=== PATIENT | male | born 1950 | race Caucasian/White ===

== ENCOUNTER 2023-07-20 14:00 | Outpatient (RCR) | payer MEDICARE, BC, SELFPAY ==
--- NOTE | 2023-07-06 15:26 | PT.OPEX ---
PT [place] Outpatient Eval PT [facility] Outpatient Eval Start: 07/06/23 12:50 Freq: Status: Active Protocol: Document 07/06/23 12:50 ELVER (Rec: 07/06/23 15:26 ELVER [id number]) E-signed By Ginna Mosley PT Physical Therapy Outpatient Evaluation Insurance Information Recert Due Date 10/03/23 Insurance Name Medicare B,Blue Cross/Blue Shield Medical Diagnosis MECHANICAL LOW BACK PAIN M54.5 Treating Diagnosis BACK PAIN M54.5 Referring MD KRISTEN HERRMANN MD Subjective Subjective PATIENT REPORTS ~ 1YEAR LONG H /O RIGHT SIDED BACK PAIN THAT DOES NOT EXTEND INTO GLUTS. HE STATES THAT I FEEL IT MOST WHEN I'M MOVING FROM LAYING DOWN TO SITTING UP AND WHEN I SIT TOO LONG. HE DENIES ANY FUNCTIONAL LOSS NOR PAIN THAT KEEPS HIM FROM PERFORMING ANY ACTIVITY BUT RATHER A NAGGING TIGHTNESS AND DISCOMFORT. PATIENT ENJOYS GOLFING AND BEING ACTIVE IN THE SUMMER MONTHS BUT TENDS TO HIBERNATE DURING THE WINTER MONTHS. HE KNOWS HE NEEDS TO MOVE MORE BUT STATES, I GET VIRAJ OF LAZY SOMETIMES I GUESS. 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 LUMBAR ROM Flexion: WFL repeated flexion: UNREMARKABLE Extension: WFL repeated ext: UNREMARKABLE Right Sidebend: WFL Left Sidebend: WFL LE MMT Hip flexion: R 5/5 L 5/5 Hip Extension: R 5/5 L 5/5 Hip abduction: R 5/5 L /55 knee extension: R 5/5 L 5/5 Knee Flexion: R 5/5 L 5/5 Dorsiflexion/heel walk: R 5/5 L 5/5 Plantarflexion/toe walk: R 5/5 L 5/5 Great Toe Extension: R 5/5 L 5 /5 JOINT MOBILITY/PALPATION: NO APPRECIABLE PAIN WITH PALPATION; MOD HYPOMOBILITY ABOUT THE LUMBAR SPINE SPECIAL TESTS Straight leg raise: (-) Crossed straight leg raise: (- ) Slump test: (-) Quadrant test: (-) SI/HIPI tests EULOGOI (-) FADIR (+) LEFT>RIGHT SCOUR (-) Gillet Test: (-) Standing forward bend Test: (- ) Gapping and Compression test: (-) TX: SUPINE TRUNK ROTATION 3 X 15 SEC SUPINE SKTC R/L 3 X 5 SEC SUPINE DKTC 3 X 10 SUPINE BRIDGE X 15 HOLD 3 SEC QUAD CAT/COW INTO CHILD'S POSE X 5 REPS (08/06/09) SHRUG W/BKWD ROTATION X 15 NEXT VISIT: STDG TB (BLUE) ROW X 15 HOLD 3 STDG TB (BLUE S'EXT X 15 HOLD 3 STDG TB (GREEN) TRUNK ROTATION X 10 R/L PRONE ALT OPP UE/LE X 10 HOLD 3 Assessment Assessment/Impression PATIENT IS A [address] HERRMANN TO EVAL AND TX MECHANICAL LBP; PMHX INCLUDES BUT NOT LIMITED HTN, COLON CA, R/L PARTIAL TKA, ALLERGIES, REMOTE H/O BACK PAIN. PATIENT DEMONSTRATES SIGNS AND SYMPTOMS INDICATING HYPOMOBILITY OF HIS LUMBAR SPINE, DECREASED CORE STRENGTH , DECREASED HIP FLEXIBILITY. PATIENT WOULD BENEFIT FROM A COMPREHENSIVE PROGRAM TO ADDRESS THESE DEFICITS WELL INSTRUCTION AND EDUCATION REGARDING POSTURE, LIFTING, AND THE AGING PROCESS IT RELATES TO NORMAL WEAR AND TEAR AND DAILY FUNCTIONAL ACTIVITIES. PATIENT IS IN AGREEMENT WITH POC AND FREQ WITH NEXT VISIT PLANS TO PROGRESS CORE/BLE STRENGTHENING. Primary Functional Limitations PROLONGED POSITIONS, BED MOBILITY, SUPINE<>SIT TRANSITIONS Plan of Care Rehabilitation Potential Good Physical Therapy Goals STG (4-6 WEEKS): 1. PATIENT WILL REPORT PAIN </ 3/10 DURING DAILY ACTIVITIES AND WITH DAILY PARTICIPATION WITH HIS HEP 2. PATIENT WILL REPORT THE ABILITY TO STAND >10 MIN TO ENABLE COOKING, GROOMING, AND OTHER IADL'S 3. PATIENT WILL VERBALIZE A GOOD UNDERSTANDING OF BODY MECHANICS DURING HIS DAILY ACTIVITIES ALONG WITH PROPER LIFTING TECHNIQUES FOR GOOD BACK CARE AND WITH SYMPTOM MGMT. LTG (8 WEEKS): 1. PATIENT WILL IMPROVE NOT ONLY FLEXIBILITY BUT BOTH CORE STRENGTH AND STABILITY TO IMPROVE POSTURING DURING DAILY ACTIVITIES INCLUDING IADL'S AND PEER CENTERED ACTIVITIES. 2. PATIENT WILL VERBALIZE GOOD UNDERSTANDING OF CORE STABILITY TO MAINTAIN AND FURTHER PROGRESS HIS FUNCTIONAL MOBILITY AND TOLERANCE TO PROLONGED POSITIONING. 3. PATIENT WILL DEMONSTRATE COMPLETE INDEPENDENCE AND THE ABILITY TO PROGRESS HIS HEP FOR MAINTENANCE AND CONTINUED IMPROVEMENT OF HIS CORE / BLE STRENGTH AND STABILITY. Coordination/Communication With Referral Source Treatment Plan/Direct Interventions Joint Mobilization,Manual Therapy,Neuromuscular Re-ed, Therapeutic Activities, Therapeutic Exercises Frequency/Duration 1W8 Patient Will Be Discharged From Therapy Completion of LTG(s), Independently Progressing Evaluation Billing Untimed Code Treatment Minutes 20 PT Eval No Charge No Complexity Moderate Certification Information Initial Certification Date 07/06/23 Ending Certification Date 10/03/23 Provider Signature Shows Agreement With POC & Medical Necessity Physician Signature & Date Requested Please Sign/Date Here Physician Comment/Change : Physician NPI Number #
== END 2023-11-17 23:59 | disposition home or self-care (01) ==
PROVIDERS: PCP Family Medicine; Visit Provider Family Medicine
DX: M54.89 Other dorsalgia (principal); Z51.89 Encounter for other specified aftercare
CPT/HCPCS: 97110; 97162

== ENCOUNTER 2025-02-21 16:59 | Emergency (ER) | payer MEDICARE, BC, SELFPAY ==
[2025-02-21 17:14] VITALS: PULSE 81; RESP 18; TEMP 37.1; O2SAT 97
--- NOTE | 2025-02-21 17:44 | ED.GENADULT ---
HPI - General Adult General Date Seen: 02/21/25 Chief complaint: Ear/Nose/Throat Problem Stated complaint: Bleeding tongue Time Seen by Provider: 02/21/25 17:19 Source: patient Mode of arrival: ambulatory Limitations: no limitations History of Present Illness HPI narrative: Patient is a 74-year-old male presenting to the emergency department for a tongue laceration. States he was eating breakfast this morning when he bit his tongue. He has not any blood thinners. Although does taking 81 mg aspirin every morning. Has not been able to get the bleeding to stop. He does occasionally developed clots on top of the tongue which then fall off. Initially went to urgent care than within to the emergency department. Denies any pain. Denies any shortness of breath or chest pain. Denies lightheadedness. No other concerns noted at this time. Related Data Home Medications ?Medication ?Instructions ?Recorded ?Confirmed aspirin 81 mg tablet,delayed 81 mg PO QDAY 02/21/25 02/21/25 release (Adult Aspirin Regimen) atenolol 50 mg tablet 50 mg PO DAILY 02/21/25 02/21/25 atorvastatin 20 mg tablet 20 mg PO DAILY 02/21/25 02/21/25 ibuprofen PO 02/21/25 02/21/25 mecobalamin (vitamin B12) PO 02/21/25 02/21/25 multivitamin 1 tab PO QAM 02/21/25 02/21/25 Allergies Allergy/AdvReac Type Severity Reaction Status Date / Time No Known Drug Allergies Allergy Verified 02/21/25 17:17 Review of Systems Narrative: Pertinent systems reviewed and were negative unless stated in HPI Exam Narrative: Exam Narrative: Const: Well-nourished, Well-developed, in mild distress Eyes: PERRL, no conjunctival injection, and symmetrical lids HENT: Atraumatic external nose and ears. Moist mucous membranes. Roughly 0.5 cm laceration noted on middle aspect of the tongue. Actively bleeding. MSK:Extremities w/o deformity, Normal Active ROM Skin: Warm, Dry. No rashes or lesions. Neuro: Normal Muscle tone, No focal neurological deficits. Psych: Awake, Alert, & Oriented x3. Appropriate mood and affect. Const: Vital Signs, click to edit/add: Vital Signs - 24 hr 02/21/25 17:14 Temperature 98.8 F Pulse Rate [Pulse Oximeter] 81 Respiratory Rate 18 Pulse Oximetry 97 Oxygen Delivery Me thod Room Air Course Vital Signs Vital signs: Initial Vital Signs Temperature 98.8 F 02/21/25 17:14 Temperature Source Temporal Artery Scan 02/21/25 17:14 Pulse Rate 81 02/21/25 17:14 Respiratory Rate 18 02/21/25 17:14 Blood Pressure Position Sitting 02/21/25 17:14 Pulse Oximetry 97 02/21/25 17:14 Oxygen Delivery Method Room Air 02/21/25 17:14 Vital Signs Temperature 98.8 F 02/21/25 17:14 Pulse Rate 81 02/21/25 17:14 Respiratory Rate 18 02/21/25 17:14 Pulse Oximetry 97 02/21/25 17:14 Oxygen Delivery Method Room Air 02/21/25 17:14 Temperature 98.8 F 02/21/25 17:14 Pulse Rate 81 02/21/25 17:14 Respiratory Rate 18 02/21/25 17:14 Pulse Oximetry 97 02/21/25 17:14 Oxygen Delivery Method Room Air 02/21/25 17:14 Medications Administered Medications: Discontinued Medications Generic Name Dose Route Start Last Admin Trade Name Freq PRN Reason Stop Dose Admin Lidocaine/Epinephrine 10 ml 02/21/25 18:19 02/21/25 18:39 Lidocaine 1%-Epi 1:100,000 Mdv INFILTRATI 02/21/25 18:20 10 ml ONCE ONE Administration Tranexamic Acid 1,000 mg 02/21/25 18:19 02/21/25 18:38 Tranexamic Acid 100 Mg/Ml Inj TOPICAL 02/21/25 18:20 1,000 mg ONCE ONE Administration Medical Decision Making [facility] Narrative Medical decision making narrative: 74-year-old male presenting to emergency department for bleeding of his tongue. Will try placing lidocaine with epi on the area to help stop the bleeding. Considering the size of the laceration will hold off on primary closure unless absolutely necessary. He all the sun for about 20 minutes and bleeding improved significantly. Watched him for about 15 minutes and he has small amount of oozing again. TXA was then placed. He help this on again for 20 minutes. Again evaluated him after another 15 minutes and bleeding has since resolved. He is doing well and is safe for discharge. Discharge Plan Discharge Clinical Impression: Laceration of tongue Qualifiers: Encounter type: initial encounter Qualified Code(s): S01.512A - Laceration without foreign body of oral cavity, initial encounter Patient Disposition: Home, Self-Care Condition: Stable Additional Instructions: Recommend only eating soft food today. Will also hold off any any crunchy foods such as chips tomorrow or the next day to make you do not cut up the area and cause bleeding again. Return for new or worsening symptoms. Prescriptions: No Action atorvastatin 20 mg tablet 20 mg PO DAILY atenolol 50 mg tablet 50 mg PO DAILY ibuprofen PO multivitamin Tablet 1 tab PO QAM aspirin [Adult Aspirin Regimen] 81 mg tablet,delayed release (DR/EC) 81 mg PO QDAY mecobalamin (vitamin B12) PO Follow Up/Referrals: Jarvis Escamilla MD [Primary Care Provider, Family Practice] Stand Alone Forms: [employer] Info Instructions
--- OUTSIDE RECORDS SUMMARY | 2025-02-21 18:02 | XMS_ITS | Encounter Summary ---
Author Organization [facility] Address [address] [place] [address] Care Team Providers Care Blood Bank Attendant Name Role Phone Elsewhere, Pcp Primary Care Provider Unavailabl e Encounter Details Date Type Department Care Team (Late st Contact Info) Description 01/07/2023 Orders Only Department of Urology in [place], [place] [address] [place] [address] [facility], ProviderMD Social History Tobacco Use Types Packs/Day Years Used Date Smoking Tobacco: Never Smokeless Tobacco: Never Alcohol Use Standard Drinks/Week Comments No 0 (1 standard drink = 0.6 oz pur e alcohol) rare Humiliation, Afraid, Rape, and Kick questionnair e Answer Date Recorded Within the last year, have y ou been afraid of your partner or ex-partner? No 03/01/2022 Within the last year, have y ou been humiliated or emotionally abused in other ways by your partner or ex-partner? No Within the last year, have y ou been kicked, hit, slapped, or otherwise physically hurt by your partner or ex-partner? No 03/01/2022 Within the last year, have y ou been raped or forced to have any kind of sexual activity by your partner or ex-partner? No 03/01/2022 Hunger Vital Sign Answer Date Recorded Within the past 12 months, y ou worried that your food would run out before you got the money to buy more. Never true 03/01/20 22 Within the past 12 months, t he food you bought just didn't last and you didn't have money to get more. Never true 03/01/2022 PRAPARE - Transportation Answer Date Re corded In the past 12 months, has l ack of transportation kept you from medical appointments or from getting medications? No 02/03 In the past 12 months, has l ack of transportation kept you from meetings, work, or from getting things needed for daily living? No 03/01/2022 Housing Stability Vital Sign Answer Shoaib e Recorded In the last 12 months, was t here a time when you were not able to pay the mortgage or rent on time? No 03/01/2022 In the last 12 months, how many places have you lived? 1 03/01/2022 In the last 12 months, was t here a time when you did not have a steady place to sleep or slept in a correction (including now)? No 03/01/2022 Education Answer Date Recorded What is the highest level of school you have completed or the highest degree you have received? Bachelor's degree (e.g., BA, AB, BS) 09/25/2018 Sex and Gender Information Value Date Recorded Sex Assigned at Male 03/01/2022 8:02 PM WILDLIFE REFUGE MANAGER Legal Sex Male 6:23 PM WILDLIFE REFUGE MANAGER Gender Identity Male 09/13/2017 9:03 AM CDT Sexual Orientation Straight 09/13/2017 9: 03 AM CDT documented as of this encounter Plan of Treatment Upcoming Encounters Date Type Department Care Team (Latest Contact Info) Description 03/12/2025 9:30 AM WILDLIFE REFUGE MANAGER Clinical Communication Virtual Review in [place], [place] [address] [place] [address] 03/13/2025 11:30 AM WILDLIFE REFUGE MANAGER Appointment Department of Radiology, [facility] in [place], [place] [address] [place] [phone] El Jhaveri M.D. [address] [place] [phone] Discharge Disposition: Home or Self Care 03/13/2025 12:10 PM WILDLIFE REFUGE MANAGER Lab Department of Laboratory Medicine and Pathology, [facility], in [place], [place] [address] [place] [phone] El Jhaveri M.D. [address] [place] [phone] 03/13/2025 12:40 PM WILDLIFE REFUGE MANAGER Lab Department of Laboratory Medicine and Pathology, [facility], in [place], [place] [address] [place] [phone] El Jhaveri M.D. [address] [place] [phone] 03/13/2025 1:30 PM WILDLIFE REFUGE MANAGER Office Visit Section of Executive [facility] in [place], [place] [address] [place] [phone] El Jhaveri M.D. [address] [place] [phone] 03/13/2025 3:30 PM WILDLIFE REFUGE MANAGER Comprehensive Visit Department of Dermatology for [facility] in [place], [place] [address] [place] [phone] El Jhaveri M.D. [address] [place] [phone] 03/14/2025 2:00 PM WILDLIFE REFUGE MANAGER Comprehensive Visit Department of Physical Medicine and Rehabilitation in [address] [phone] Kortney Gomez M.D. [address] [place] [phone] 03/14/2025 4:00 PM WILDLIFE REFUGE MANAGER Comprehensive Visit Department of Physical Medicine and Rehabilitation in [address] [phone] El Jhaveri M.D. [address] [place] [phone] Khadijah Kelley P.T. [address] [place] [phone] 03/15/2025 7:00 AM [facility] Telemedicine Section of [facility] Medicine in [place], [place] [address] [place] [phone] El Jhaveri M.D. 200 [place] [phone] documented as of this encounter Visit Diagnoses Not on filedocumented in this encounter Care Teams Blood Bank Attendant Relationship Specialty Start Date End Date Elsewhere, Pcp PCP - General 07/26/21 documented as of this encounter
--- OUTSIDE RECORDS SUMMARY | 2025-02-21 18:02 | XMS_ITS | Encounter Summary ---
Author Organization [facility] Address [address] [place] [address] Care Team Providers Care Airport Attendant Name Role Phone Elsewhere, Pcp Primary Care Provider Unavailabl e Reason for Referral * Outpatient (Routine) - Authorized Specialty Diagnoses / Procedures Referred By Contac t Referred To Contact [facility] Diagnoses General Medical Examination Adult El Jhaveri M.D. [address] [place] [address] Phone: tel: fax: [facility] Referral ID Status Reason Start Date Expiration Date V isits Requested Visits Authorized [id number] Authorized 12/28/2024 06/29/2026 1 1 * Physical Therapy (Routine) - Authorized Specialty Diagnoses / Procedures Referred By Contac t Referred To Contact Diagnoses Pain Shoulder Right Procedures PT Evaluate and treat El Jhaveri M.D. [address] [place] [address] Phone: tel: fax: [facility] Referral ID Status Reason Start Date Expiration Date V isits Requested Visits Authorized [id number] Authorized 12/28/2024 03/30/2026 99 99 * Outpatient (Routine) - Authorized Specialty Diagnoses / Procedures Referred By Contac t Referred To Contact Diagnoses Pain Shoulder Right Procedures DX Shoulder Right 2+ Views El Jhaveri M.D. [address] [place] [address] Phone: tel: fax: [facility] Referral ID Status Reason Start Date Expiration Date V isits Requested Visits Authorized [id number] Authorized 12/28/2024 03/30/2026 1 1 * Outpatient (Routine) - Authorized Specialty Diagnoses / Procedures Referred By Contact Referred To Contact Physical Medicine and Rehabilitation Diagnoses Pain Shoulder Right El Jhaveri M.D. [address] [place] [address] Phone: tel: fax: [facility] Referral ID Status Reason Start Date Expiration Date V isits Requested Visits Authorized [id number] Authorized 12/28/2024 06/29/2026 1 1 * Outpatient (Routine) - Authorized Specialty Diagnoses / Procedures Referred By Contac t Referred To Contact Dermatology Diagnoses Nevi Multiple Keratosis [facility]inic El Jhaveri M.D. [address] [place] [address] Phone: tel: fax: [facility] Referral ID Status Reason Start Date Expiration Date V isits Requested Visits Authorized [id number] Authorized 12/28/2024 06/29/2026 1 1 Reason for Visit * Reason Onset Date Comments 03/13/2025 ARF 12/24/2024 Encounter Details Date Type Department Care Team (Latest Contact Info) Description 12/24/2024 Clinical Communication Section of [facility] Medicine in [place], [place] [address] [place] [address] [place] [address] 03/13/2025 ARF Social History Tobacco Use Types Packs/Day Years Used Date Smoking Tobacco: Never Passive Smoke Exposure: Never Smokeless Tobacco: Never Alcohol Use Standard Drinks/Week Comments Not Currently 0 (1 standard drink = 0.6 oz pure alcohol) Only occasional wine or cocktail. Very sparingly. [facility] Utilities Answer Date Recorded In the past 12 months has [facility] [employer], oil, or water [employer] threatened to shut off services in your home? No 09/04/2024 Humiliation, Afraid, Rape, and Kick questionnair e Answer Date Recorded Within the last year, have y ou been afraid of your partner or ex-partner? No 09/04/2024 Within the last year, have y ou been humiliated or emotionally abused in other ways by your partner or ex-partner? No Within the last year, have y ou been kicked, hit, slapped, or otherwise physically hurt by your partner or ex-partner? No 09/04/2024 Within the last year, have y ou been raped or forced to have any kind of sexual activity by your partner or ex-partner? No 09/04/2024 Hunger Vital Sign Answer Date Recorded Within the past 12 months, y ou worried that your food would run out before you got the money to buy more. Never true 09/05/19 25 Within the past 12 months, t he food you bought just didn't last and you didn't have money to get more. Never true 09/04/2024 PRAPARE - Transportation Answer Date Re corded In the past 12 months, has l ack of transportation kept you from medical appointments or from getting medications? No 06/2024 In the past 12 months, has l ack of transportation kept you from meetings, work, or from getting things needed for daily living? No 09/04/2024 Housing Stability Answer Date Recorded What is your living situation today? I have a [facility] place to live 09/04/2024 Education Answer Date Recorded What is the highest level of school you have completed or the highest degree you have received? Bachelor's degree (e.g., BA, AB, BS) 09/25/2018 Sex and Gender Information Value Date Recorded Sex Assigned at Male 03/01/2022 8:02 PM [employer] AIR CONDITIONING MECHANIC Legal Sex Male 6:23 PM [employer] Gender Identity Male 09/13/2017 9:03 AM CDT Sexual Orientation Straight 09/13/2017 9: 03 AM CDT documented as of this encounter Miscellaneous Notes * Telephone Encounter - Gary Romano - 12/24/2024 2:55 PM CDT [facility] ARF Responses Name: Guille Garcia [facility] Number: [id number] Birthdate: 1950 Email: [email or web address] Date Completed: 12/23/2024 6:52 PM Patient's Personal Details Height in feet and inches: 5 feet 10 inches Weight in pounds: 205 pounds pounds Specific Medical Concerns Do you have any specific medical concerns to be addressed during your visit?: No Personal History Do you have a personal or family history of coronary artery disease?: Yes Are you taking prescription medication to control cholesterol?: Yes Do you currently smoke tobacco products, or have you smoked tobacco products in the past?: No Are you diabetic?: No Are you currently taking any GLP1 medications (Ozempic, Rybelsus, Wegovy, Trulicity, Victoza, Saxenda, Byetta, Bydureon BCise, Monjaro, ect)?: No Vaccinations Would you like a nurse to review your vaccination status before your appointment with [facility]?: Yes Essential Questions for Your Care Profile Colon Cancer Screening Where was your last colon cancer screening performed (e.g. Colonoscopy, Cologuard, Virtual Colonoscopy, etc.)?: I had my last colon cancer screening at [facility] If due, would you like this performed at [facility]?: Yes Have you had any difficulty with sedation?: No I have a history of colon polyps: Yes I have a history of colon cancer: Yes I have a family history (parent, sibling or child) of colon polyps before age 60: No I have a family history (parent, sibling, or child) colon cancer: No Polyp Type: Cancer Blood Medications Do you currently take any medications that alter blood clotting (i.e. blood thinners, antiplatelet medications, or aspirin)?: Yes Please check all blood medications that apply.: Aspirin Other Medical Factors Do you have any implantable devices?: No Are you currently receiving dialysis, have you ever received a kidney transplant, or have you ever been told that you have trouble with your kidneys?: No Have you ever had an allergic reaction to contrast dye?: No [facility] Patients Aged 60-69 Sleep Medicine Do you have concerns with a sleep condition that you would like to be evaluated for at [facility] such as chronic insomnia, sleep apnea, snoring, restless leg syndrome, narcolepsy, or unusual sleep behaviors?: No Osteoporosis Screening Have you experienced a fracture that occurred with lifting or after a fall from standing height or less?: No Musculoskeletal Advanced Procedure Clinic Are you interested in an advanced procedure consultation?: No Clinic for Osteoarthritis Management and Prevention Are you without a current joint problem but want your risk for developing arthritis assessed and receive recommendations for risk reduction?: No Do you have arthritis of the shoulder, hip, or knee and want to be evaluated by an expert for this problem?: Yes If yes: Shoulder-Right Joint Pain Do you have a specific joint pain issue you would like addressed during your [facility] exam?: Yes Please select the joint(s) with pain. Recommend for scheduling purposes to limit to top three jointconcerns that you would like to have evaluated by a specialist.: Shoulder - Right Have you had any previous evaluations or diagnoses?: Yes Please provide facility name and state where the evaluation was performed: [facility] How long have you had pain?: 4 months Is your pain from a previous injury?: No Have you had any previous injections?: No Would you be interested in a surgical evaluation for your joint pain at [facility]?: No Most-Requested Optional [facility] Travel Medicine Consultation including vaccinations and travel-based medical advice: No Would you like to have an appointment with a [facility] Cutter Barrel Drum?: Yes Do you have a specific skin condition you would like to have addressed at [place]?: No Eye exam: No Do you need a Federal Aviation Administration (FAA) automatic pilot mechanic medical evaluation?: No Do you need a commercial intelligence manager medical evaluation (FMC SA/DOT)?: No [facility] and [facility] Stress Management and Resiliency Training Therapy Session: No Exercise and Movement Appointment: No Coaching session with a nationally certified [facility] Furnace Setter: No Are you interested in nutrition or meal planning while at [facility]?: No Multi-Cancer Early Detection Test Do you want this multi-cancer early detection testing as part of your [facility] appointment?: No Sports Medicine Performance and Nutrition Programs Genetic Counseling Consult: [employer] Do you want this genetic counseling consult as part of your [facility] Appointment?: No Pharmacogenomics Test Do you want this pharmacogenomics testing as part of your [facility] appointment?: No [facility] Accept Terms Listed Above: Yes Local Primary Care Physician Name: Dr. Andi Powell Billing and Authorization Information Accept the terms listed above: Yes documented in this encounter Plan of Treatment Upcoming Encounters Date Type Department Care Team (Latest Contact Info) Description 03/12/2025 9:30 AM [employer] AIR CONDITIONING MECHANIC Clinical Communication Virtual Review in [place], [place] [address] [place] [address] 03/13/2025 11:30 AM [employer]O AIR CONDITIONING MECHANIC Appointment Department of Radiology, [facility] in [place], [place] [address] [place] [phone] El Jhaveri M.D. [address] [place] [phone] Discharge Disposition: Home or Self Care 03/13/2025 12:10 PM AUTO AIR CONDITIONING MECHANIC Lab Department of Laboratory Medicine and Pathology, [place], [place] [address] [place] [phone] El Jhaveri M.D. [address] [place] [phone] 03/13/2025 12:40 PM AUTO AIR CONDITIONING MECHANIC Lab Department of Laboratory Medicine and Pathology, [facility], in [place], [place] [address] [place] [phone] El Jhaveri M.D. [address] [place] [phone] 03/13/2025 1:30 PM [employer] AIR CONDITIONING MECHANIC Office Visit Section of [facility] in [place], [place] [address] [place] [phone] El Jhaveri M.D. [address] [place] [phone] 03/13/2025 3:30 PM [employer] AIR CONDITION[employer] MECHANIC Comprehensive Visit Department of Dermatology for [facility] in [place], [place] [address] [place] [phone] El Jhaveri M.D. [address] [place] [phone] 03/14/2025 2:00 PM [employer] AIR CONDITIONING MECHANIC Comprehensive Visit Department of Physical Medicine and Rehabilitation in [place], [place] [address] [place] [phone] Kortney Gomez M.D. [address] [place] [phone] 03/14/2025 4:00 PM [employer] AIR CONDITIONING MECHANIC Comprehensive Visit Department of Physical Medicine and Rehabilitation in [place], [place] [address] [place] [phone] El Jhaveri M.D. [address] [place] [phone] Khadijah Kelley I., P.TGénesis [address] [place] [phone] 03/15/2025 7:00 AM AUTO AIR CONDITIONING MECHANIC Telemedicine Section of [facility] Medicine in [place], [place] [address] [place] [phone] El Jhaveri M.D. [address] [place] [phone] Scheduled Orders Name Type Priority Associated Diagnoses Orde r Schedule PSA (Prostate-Specific Antigen), Diagnostic Lab Routine Screening Examination Prostate Cancer Expected: 03/13/2025, Expires: 03/28/2026 Vitamin B12 Assay Lab Routine Multisystem Laboratory Testing Adult Expected: 03/13/2025, Expires: 03/28/2026 25-Hydroxyvitamin D2 and D3 Lab Routine Multisystem Laboratory Testing Adult Expected: 03/13/2025, Expires: 03/28/2026 DX Shoulder Right 2+ Views Imaging RAD - Routine (most inpatients and all outpatients) Pain Shoulder Right Expected: 03/13/2025, Expires: 03/28/2026 CBC with Differential, Blood Lab Routine Multisystem Laboratory Testing Adult Expected: 03/13/2025, Expires: 03/28/2026 Comprehensive Metabolic Panel Lab Routine Multisystem Laboratory Testing Adult Expected: 03/13/2025, Expires: 03/28/2026 Hemoglobin A1c Lab Routine Multisystem Laboratory Testing Adult Expected: 03/13/2025, Expires: 03/28/2026 Lipid Panel Lab Routine Multisystem Laboratory Testing Adult Cardiac Vascular Disease Screening Expected: 03/13/2025, Expires: 03/28/2026 Thyroid Function [place] [facility] Routine Multisystem Laboratory Testing Adult Screening Examination For Thyroid Disorder Expected: 03/13/2025, Expires: 03/28/2026 Urinalysis, with Microscopic: Urine, Midstream Lab Routine Multisystem Laboratory Testing Adult Expected: 03/13/2025, Expires: 03/28/2026 Scheduled Referrals Name Type Priority Associated Diagnoses Order Schedule Dermatology - Skin check consult (clinic) Outpatient Referral Routine Nevi Multiple Keratosis Actinic Expected: 03/13/2025, Expires: 03/28/2026 Physical Medicine and Rehabilitation - General consult (clinic) Outpatient Referral Routine Pain Shoulder Right Expected: 03/13/2025, Expires: 03/28/2026 [facility] office visit (clinic) Outpatient Referral Routine General Medical Examination Adult Expected: 03/13/2025, Expires: 03/28/2026 documented as of this encounter Visit Diagnoses Diagnosis Multisystem Laboratory Testing Adult- Primary Nevi Multiple Keratosis [facility]inic Screening Examination Prostate Cancer Pain Shoulder Right General Medical Examination Adult Cardiac Vascular Disease Screening Screening Examination For Thyroid Disorder Hypertension Essential Primary- Primary Hyperlipidemia On Treatment 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
--- OUTSIDE RECORDS SUMMARY | 2025-02-21 18:02 | XMS_ITS | Clinical Summary ---
Author Organization [facility] Address [address] [place] [address] Care Team Providers Care Game Producer Name Role Phone Elsewhere, Pcp Primary Care Provider Unavailabl e Source Comments Patient records contain information from all sites at [facility]. For routine questions regarding patient records, call [phone] during business hours, M-F 8:00 AM - 5:00 PM Central Time. Record requests for emergency care only can be directed to [phone] at any time.[facility] Allergies Active Allergy Reactions Criticality Noted Date Comments House Dust Mite Other (see comments) 08/05/2016 Nasal congestion Medications aspirin [address] tablet Take 81 mg by mouth every morning. 6 Active folic acid/multivit-mi n/lutein (CENTRUM SILVER ORAL) Take 1 tablet by mouth every morning. 5 Active vitamin A & D (AMERIDERM) ointment Apply 1 Application topically every morning. Active loratadine (CLARITIN ORAL) Take 10 mg by mouth every evening. Active ibuprofen (ADVIL,MOTRIN) 200 mg tablet Take 400 mg by mouth every 6 (six) hours as needed for pain. Active amoxicillin (AMOXIL) 500 mg capsule Take 2,000 mg by mouth once as needed (1 hour prior to dental appointments). 0 Active atorvastatin (Lipitor) 20 mg tablet Take 1 tablet (20 mg total) by mouth daily. 90 tablet 3 4 03/22/20 25 Active folic acid 1 mg tablet Take 1 mg by mouth daily. Active lidocaine-priloc gera (Emla) 2.5-2.5 % creamIndications :Benign Prostatic Hyperplasia Hypertrophy With Obstruction Apply 1 Application topically 4 (four) times a day as needed for pain. Apply to tip of penis around catheter. 30 g 5 Active Additional Information Patient not taking.Reported on 12/05/2024 acetaminophen (TylenoL) 500 mg tablet Take 2 tablets (1,000 mg total) by mouth every 6 (six) hours as needed for pain. 5 Active sennosides-docus ate sodium (Senokot-S) 8.6-50 mg per tablet Take 1 tablet by mouth 2 (two) times a day as needed for constipation. 5 Active Additional Information Patient not taking.Reported on 12/05/2024 atenoloL (Tenormin) 50 mg tablet TAKE 1 TABLET(50 MG) BY MOUTH DAILY 90 tablet 5 Active Hospital, Clinic, or Other Facility Administered Medication Ordered Dose Route Frequency Start Date End Date Status lidocaine (PF) 10 mg/mL (1 %) injection 20 mL (XYLOCAINE) 20 mL inj Once 04/18/2019 Active Active Problems Patient Care Coordination No te Formatting of this note is d ifferent from the original. [facility] Colon Cancer Screening Last colon screen: Colonoscopy Year: 2023. First Degree Relative with Cancer: Yes - Age at diagnosis: unknown . Prep: Regular Complex Suite: No Results: Positive Polyps Hyperplastic Next Colon screen: 2026; Hx Colon Ca > 5 years; now on a 3 year cycle. Prostate Cancer Screening Next PSA: Diagnostic Lab Results Component Value Date PSA 3.1 03/03/2022 PSA 3.2 01/12/2021 PSA 3.8 02/07/2020 AAA (male) AAA screening: Negative in 2018 Bone Mineral Density Last BMD: Date: 2021 - Impression: Osteopenia - FRAX Score: Major Osteoporotic: 12.7 Hip Fracture: 5.0 Next BMD: 2025 HIV Negative in 2020 HCV Negative in 2016 HBV Negative in 2023 Cardiology: Last EC Next EC Lipoprotein (a): 45 in 2020 Coronary Calcium Scoring: Score of 356 in 2021 Audiology Completed in 2021 Next due date: unknown Problem Noted Date Diagnosed Date Enlarged Prostate With Lower Urinary Tract Sympt oms 02/15/2025 Keratosis Actinic 02/17/2022 Benign Prostatic Hyperplasia Hypertrophy With Ob struction 10/23/2019 Hypertension Essential Primary 10/23/2019 Stone Bladder 10/17/2019 Overview (10/17/2019): Added automatically from request for surgery [id number] Hyperlipidemia On Treatment 11/12/2014 Malignant Neoplasm Of Colon Hepatic Flexure 10/2013 Sudden Family History 01/30/2013 Resolved Problems Problem Noted Date Diagnosed Date Resolved Date Personal History Of Malignan t Neoplasm Of Prostate 04/06/2016 10/23/2019 Aftercare Total Knee Arthroplasty 01/21/2015 10/23/2019 Hemicolectomy Right Status Post 11/12/2014 10/23/2019 Cancer Colon Primary Personal History 08/20/2014 10/23/2019 Primary Osteoarthritis Knee 02/21/2012 10/23/2019 Gastroesophageal Reflux Disease NOS 02/21/2012 10/23/2019 Dysfunction Erectile 02/21/2012 020 Elevated Prostate-Specific Antigen 06/05/2008 10/23/2019 Unilateral Inguinal Hernia W ithout Obstruction Or Gangrene Not Specified As Recurrent 05/07/2008 10/23/2019 Overview (01/26/2018): Overview: Assymptomatic left ing hernia Anxiety Generalized Disorder 11/21/2006 10/23/2019 Encounters Date Type Department Care Team Description 01/16/2025 Clinical Communication [facility] of [facility] in [place], [place] [address] [place] [address] El Jhaveri M.D. 12/24/2024 Clinical Communication [facility] in [place], [place] [address] [place] [phone] El Jhaveri M.D. 03/13/2025 ARF 12/15/[address] [facility] Medicine in [place], [place] [address] [place] [phone] Dale Zelaya M.D. Med Refill 12/06/2024 2:30 PM CDT Office Visit Department of Urology in [place], [place] [address] [place] [address] Katy Gutierrez APRN, C.N.P., D.N.P. Benign Prostatic Hyperplasia Hypertrophy With Obstruction (Primary Dx) 12/06/2024 11:15 AM CDT Procedure visit Department of Urology in [place], [place] [address] [place] [phone] Adal Doshi M.D., Ph.D. Anastasiya Herron R.N. Benign Prostatic Hyperplasia Hypertrophy With Obstruction 12/05/2024 12:00 PM CDT Clinical Communication Virtual Review in [place], [place] [address] [place] [address] Pre-visit Intake from Last 3 Months Immunizations Immunization Administration Dates Next Due HZV (ZOSTAVAX) 02/06/2014 Influenza Split 01/13/2016,12/17/2013,01/16/2010 Influenza TIV (IM) 03/09/2024,02/25/2017 Influenza high dose QV(65 ye ars or older) (PF) 02/23/2021,02/08/2020 Influenza, Quadrivalent, Adj uvanted, Preservative Free 12/23/2022 Influenza, Seasonal, Injectable 03/12/2003 PCV13 02/19/2014 PPSV23 01/12/2021,05/19/2015 RZV (SHINGRIX) 04/28/2020,02/08/2020 SARS-COV-2 (COVID-19) - MODE RNA (12 YEARS AND OLDER) Fall Seasonal 02/07/2023 SARS-COV-2 (COVID-19) - MODE RNA BIVALENT(Discontinued) 02/18/2022 SARS-COV-2 (COVID-19) - PFIZ ER (Discontinued)(12 years or older) 06/28/2020,06/07/2020 SARS-COV-2 (COVID-19) - PFIZ ER BIVALENT TS(Discontinued)(12 YEARS OR OLDER) 12/16/2021 SARS-COV-2 (COVID-19) - PFIZ ER TS(Discontinued)(12 years or older) 07/09/2021 Td, (Adult) Unspecified 04/21/1998 Tdap 01/12/2021,08/18/2010,03/16/2007 Zoster, Unspecified 12/16/2011(Deferred: Other) influenza trivalent high dose (HD)(PF) 2 influenza vaccine quad (FLUZ ONE/FLUARIX) (6 months and older)(PF) 05/19/2015,01/12/2013 Family History Medical History Relation Name Comments Coronary artery disease Father tamara saunders Heart disease Father tamara saunders Relation Name Status Comments Father tamara saunders Social History Tobacco Use Types Packs/Day Years Used Date Smoking Tobacco: Never Passive Smoke Exposure: Never Smokeless Tobacco: Never Tobacco Cessation:Counseling Given: Not Answered Alcohol Use Standard Drinks/Week Comments Not Currently 0 (1 standard drink = 0.6 oz pure alcohol) Only occasional wine or cocktail. Very sparingly. [facility] Soocialities Answer Date Recorded In the past 12 months has e [employer], oil, or water [employer] threatened to shut off services in your [...] your living situation today? I have a [facility] place to live 09/04/2024 Education Answer Date Recorded What is the highest level of school you have completed or the highest degree you have received? Bachelor's degree (e.g., BA, AB, BS) 09/25/2018 Sex and Gender Information Value Date Recorded Sex Assigned at Male 03/01/2022 8:02 PM COMMERCIAL DRIVER'S LICENSE DRIVER Legal Sex Male 6:23 PM COMMERCIAL DRIVER'S LICENSE DRIVER Gender Identity Male 09/13/2017 9:03 AM CDT Sexual Orientation Straight 09/13/2017 9: 03 AM CDT Last Filed Vital Signs Vital Sign Reading Time Taken Comments Blood Pressure 135/84 09/05/2024 10:40 AM CDT Pulse 115 09/05/2024 10:18 PM CDT Temperature 37 C (98.6 F) 09/05/2024 10:18 PM CDT Respiratory Rate 22 09/05/2024 10:18 PM CDT Oxygen Saturation 95% 09/05/2024 10:18 PM CDT Inhaled Oxygen Concentration - - Weight 97 kg (213 lb 15.3 oz) 09/04/2024 7:26 AM CDT Height 178.4 cm (5' 10.24) 09/04/2024 7:26 AM C DT Body Mass Index 30.49 09/04/2024 7:26 AM CDT Plan of Treatment Upcoming Encounters Date Type Department Care Team (Latest Contact Info) Description 03/12/2025 9:30 AM COMMERCIAL DRIVER'S LICENSE DRIVER Clinical Communication Virtual Review in [place], [place] [address] [place] [phone] 03/13/2025 11:30 AM COMMERCIAL DRIVER'S LICENSE DRIVER Appointment Department of Radiology, [facility] in [place], [place] [address] [place] [phone] El Jhaveri M.D. [address] [place] [phone] Discharge Disposition: Home or Self Care 03/13/2025 12:10 PM COMMERCIAL DRIVER'S LICENSE DRIVER Lab Department of Laboratory Medicine and Pathology, [facility], in [place], [place] [address] [place] [address] El Jhaveri M.D. [address] [place] [phone] 03/13/2025 12:40 PM COMMERCIAL DRIVER'S LICENSE DRIVER Lab Department of Laboratory Medicine and Pathology, [facility], in [place], [place] [address] [place] [phone] El Jhaveri M.D. [address] [place] [phone] 03/13/2025 1:30 PM COMMERCIAL DRIVER'S LICENSE DRIVER Office Visit Section of [facility] in [place], [place] [address] [place] [phone] El Jhaveri M.D. [address] [place] [phone] 03/13/2025 3:30 PM COMMERCIAL DRIVER'S LICENSE DRIVER Comprehensive Visit Department of Dermatology for [facility] in [place], [place] [address] [place] [phone] El Jhaveri M.D. [address] [place] [phone] 03/14/2025 2:00 PM COMMERCIAL DRIVER'S LICENSE DRIVER Comprehensive Visit Department of Physical Medicine and Rehabilitation in [address] [phone] Kortney Gomez M.D. [address] [place] [phone] 03/14/2025 4:00 PM COMMERCIAL DRIVER'S LICENSE DRIVER Comprehensive Visit Department of Physical Medicine and Rehabilitation in [address] [phone] El Jhaveri M.D. [address] [place] [phone] Khadijah Kelley I. PGénesisTGénesis [address] [place] [phone] 03/15/2025 7:00 AM COMMERCIAL DRIVER'S LICENSE DRIVER Telemedicine Section of [facility] in [place], [place] [address] [place] [address] El Jhaveri M.D. [address] [place] [address] Health Maintenance Due Date Last Done Comments Office Visit for Blood Pressure Check / Re-check 1950 Depression Screening (Annual PHQ-2) 04/04/2024 COVID-19 Vaccine ( season) 2024 03/09/2024, 07/04/2023, 02/07/2023, Additional history exists Influenza Vaccine (#1) 2024 , 12/23/2022, 02/17/2022, Additional history exists Fasting Glucose for Diabetes Screening 03/19/2027 03/19/2024, 03/19/2024, 03/29/2023, Additional history exists Lipid (Cholesterol) Screening 03/19/2029 03/19/2024, 03/29/2023, 03/03/2022, Additional history exists DTaP,Tdap,and Td Vaccines (4 - Td or Tdap) 01/12/2031 01/12/2021, 08/18/2010, 03/16/2007, Additional history exists Zoster Vaccines Completed 04/28/2020, 09/2019, 02/06/2014 Pneumococcal vaccine (50+ years) Completed 01/12/2021, 05/19/2015, 02/19/2014 Fall Risk Screen (Annual) Completed 09/04/2024 IPV Vaccines Aged Out No longer eligi ble based on patient's age to complete this topic Medical Devices Implanted Type Area Relations Director Device Identifier Shelf Expiration Date Model / Serial / Lot Zim Uni Insert 8 Sz 4 - Sanchez [id number] Implanted:Qty: 1 on 01/14/2015 Knee Implant Other/Legacy - See Implant Description [employer] Description:Device Manufactu rer - Alvin. Body Location - Other. Left. Device Status Text - [id number] [id number]. Zim Uni Fem Reg Lt Mdl Rt Lat - Sanchez [id number] Implanted:Qty: 1 on 01/14/2015 Knee Implant Bilateral: Other/Legacy - See Implant Description [employer] Description:Device Manufactu rer - Alvin. Body Location - Other. Left. Device Status Text - KNEE [id number]. Zim Uni Tib Plate Hydrogen Treater Lrt Sz 4 - Sanchez [id number] Implanted:Qty: 1 on 01/14/2015 Knee Implant Other/Legacy - See Implant Description [employer] Description:Device Manufactu rer - Alvin. Body Location - Other. Left. Device Status Text - KNEE [id number]. Zim Uni Fem Reg Plus Rt Mdl Lt Lat - Sanchez [id number] Implanted:Qty: 1 on 07/22/2015 Knee Implant Other/Legacy - See Implant Description [employer] Description:Device Manufactu rer - Alvin. Body Location - Other. Right. Device Status Text - [id number] [id number]. Zim Uni Insert 8 Sz 4 - Sanchez [id number] Implanted:Qty: 1 on 07/22/2015 Knee Implant Other/Legacy - See Implant Description [employer] Description:Device Manufactu rer - Alvin. Body Location - Other. Right. Device Status Text - KNEE [id number]. Zim Uni Tib Plate Mrt Llt Sz 4 - Sanchez [id number] Implanted:Qty: 1 on 07/22/2015 Knee Implant Other/Legacy - See Implant Description [employer] Description:Device Manufactu rer - Alvin. Body Location - Other. Right. Device Status Text - KNEE [id number]. Cement Bone Small - Sanchez [id number] Implanted:Qty: 1 on 01/14/2015 Mis Other Kym Description:Device Manufactu rer - Kym Joselin.. Device Status Text - [id number]-2841. Cement Bone Small - Sanchez [id number] Implanted:Qty: 1 on 07/22/2015 Mis Other Kym Description:Device Manufactu rer - [place] Joselin.. Device Status Text - [id number]-2841. Ocular Lens Ocular Lens Bilateral: Eye Stent Inlay 7fr X 26cm - Sanchez [id number] Implanted:Qty: 1 on 10/28/2011 Ureteral Stent C.[employer].Bard Description:Device Manufactu rer - Bard Patient Care Division. Device Status Text - [id number]. Procedures Procedure Name Priority Date/Time Associated Diagnosis Comments URO UROFLOW Routine 12/06/2024 11:15 AM CDT Benign Prostatic Hyperplasia Hypertrophy With Obstruction HEMOGLOBIN A1C, B Routine 03/19/2024 11: 11 AM COMMERCIAL DRIVER'S LICENSE DRIVER [facility] Testing Adult LIPID PANEL, S Routine 03/19/2024 11:11 AM COMMERCIAL DRIVER'S LICENSE DRIVER [facility] Laboratory Testing Adult from Last 3 Months or Most Recently Relevant to Health Maintenance Results * URO Uroflow (12/06/2024 11:15 AM CDT) Narrative Juan F Varela M.D. - 12/06/2024 11:15 AM CDT Juan F Varela M.D. 12/06/2024 3:36 PM Reason for visit: UROFLOW The patient is here for a complex uroflow via calibrated electronic equipment and residual urine checked by ultrasound. Indications: BPH with lower urinary tract symptoms Peak flow: 6.3 ml/sec Average flow: 3.6 ml/sec Voiding time: 15.5 sec Total voided volume: 56 mls Continuous (smooth) flow pattern Residual urine: 0 ml by ultrasound Impression: Low voided volume with low postvoid residual. us Adal Doshi M.D., Ph.D. UROLOGY ORDERABLES Final Result * (ABNORMAL) Lipid Panel (03/19/2024 11:11 AM COMMERCIAL DRIVER'S LICENSE DRIVER) Triglycerides 191(H) mg/dL 03/19/2024 1:14 PM COMMERCIAL DRIVER'S LICENSE DRIVER DTL Comment: ----REFERENCE VALUE---- Normal: <150 mg/dL Borderline High: 150-199 mg/dL High: 200-499 mg/dL Very High: > or =500 mg/dL Cholesterol, Total 156 mg/dL 2023 1:14 PM COMMERCIAL DRIVER'S LICENSE DRIVER DTL Comment: ----REFERENCE VALUE---- Desirable: < 200 mg/dL Borderline High: 200 - 239 mg/dL High: > or = 240 mg/dL Cholesterol, LDL, Calculated 77 mg/dL 03/19/2024 1:14 PM COMMERCIAL DRIVER'S LICENSE DRIVER DTL Comment: ----REFERENCE VALUE---- Desirable: <100 mg/dL Above Desirable: 100-129 mg/dL Borderline High: 130-159 mg/dL High: 160-189 mg/dL Very High: >=190 mg/dL ----ADDITIONAL INFORMATION---- LDL cholesterol calculated using the Ramirez/NIH equation. Cholesterol, HDL, S 47 >=40 mg/dL 03/19/2024 1:14 PM COMMERCIAL DRIVER'S LICENSE DRIVER DTL Cholesterol, Non-HDL, Calculated 109 mg/dL 03/19/2024 1:14 PM COMMERCIAL DRIVER'S LICENSE DRIVER DTL Comment: ----REFERENCE VALUE---- Desirable: <130 mg/dL Above Desirable: 130-159 mg/dL Borderline High: 160-189 mg/dL High: 190-219 mg/dL Very High: > or =220 mg/dL Fasting (8 HR or more) Yes 03/19/2024 11:11 AM COMMERCIAL DRIVER'S LICENSE DRIVER DTL Blood (Blood, Venous) 03/19/2024 11:11 AM COMMERCIAL DRIVER'S LICENSE DRIVER 03/19/2024 12:12 PM COMMERCIAL DRIVER'S LICENSE DRIVER us El Jhaveri M.D. LAB BLOOD ADD-ON Final Re sult Performing Organization Address [facility] Co de Phone Number [facility] [address] [place], [place] [phone] [place] [address] [facility] [address] [place] [address] * Hemoglobin A1c (03/19/2024 11:11 AM COMMERCIAL DRIVER'S LICENSE DRIVER) Hemoglobin A1c, B 5.1 4.0 - 5.6 % 03/19/2024 12:59 PM COMMERCIAL DRIVER'S LICENSE DRIVER DTL Blood (Blood, Venous) 03/19/2024 11:11 AM COMMERCIAL DRIVER'S LICENSE DRIVER 03/19/2024 11:59 AM COMMERCIAL DRIVER'S LICENSE DRIVER us El Jhaveri M.D. LAB BLOOD ADD-ON Final Re sult Performing Organization Address City/[facility]/ZIP Co de Phone Number [facility] [address] [place] [address], [facility] DTL [facility] [address] [place] [address] from Last 3 Months or Most Recently Relevant to Health Maintenance Insurance [facility] MEDICARE Advance Directives For more information, please contact: [phone] * Full Code (Latest Code Status on File) Date Activated Date Inactivated Comments 09/04/2024 11:55 AM 09/05/2024 1:35 PM Question Answer Comments Full Code: Discussed Care Teams Game Producer Relationship Specialty Start Date End Date Elsewhere, Pcp PCP - General 07/26/21
--- OUTSIDE RECORDS SUMMARY | 2025-02-21 18:02 | XMS_ITS | Encounter Summary ---
Author Organization [facility] Address [address] [place] [address] Care Team Providers Care Bonding Equipment Operator Name Role Phone Elsewhere, Pcp Primary Care Provider Unavailabl e Encounter Details Date Type Department Care Team (Late st Contact Info) Description 01/16/2025 Clinical Communication Section of [facility] Medicine in [place], [place] [address] [place] [phone] El Jhaveri M.D. [address] [place] [address] Social History Tobacco Use Types Packs/Day Years Used Date Smoking Tobacco: Never Passive Smoke Exposure: Never Smokeless Tobacco: Never Alcohol Use Standard Drinks/Week Comments Not Currently 0 (1 standard drink = 0.6 oz pure alcohol) Only occasional wine or cocktail. Very sparingly. [facility] Utilities Answer Date Recorded In the past [address] [facility] [employer] gas, oil, or water [employer] threatened to shut off services in your [...] your living situation today? I have a [facility] place to live 09/04/2024 Education Answer Date Recorded What is the highest level of school you have completed or the highest degree you have received? Bachelor's degree (e.g., BA, AB, BS) 09/25/2018 Sex and Gender Information Value Date Recorded Sex Assigned at Male 03/01/2022 8:02 PM BISCUITWARE BRUSHER Legal Sex Male 6:23 PM BISCUITWARE BRUSHER Gender Identity Male 09/13/2017 9:03 AM CDT Sexual Orientation Straight 09/13/2017 9: 03 AM CDT documented as of this encounter Plan of Treatment Upcoming Encounters Date Type Department Care Team (Latest Contact Info) Description 03/12/2025 9:30 AM BISCUITWARE BRUSHER Clinical Communication Virtual Review in [place], [place] 200 [place] [address] 03/13/2025 11:30 AM BISCUITWARE BRUSHER Appointment Department of Radiology, [facility], in [place], [place] [address] [place] [phone] El Jhaveri M.D. [address] [place] [phone] Discharge Disposition: Home or Self Care 03/13/2025 12:10 PM BISCUITWARE BRUSHER Lab Department of Laboratory Medicine and Pathology, [facility], in [place], [place] [address] [place] [address] [place] [phone] El Jhaveri M.D. [address] [place] [phone] 03/13/2025 12:40 PM BISCUITWARE BRUSHER Lab Department of Laboratory Medicine and Pathology, [facility], in [place], [place] [address] [place] [address] El Jhaveri M.D. [address] [place] [phone] 03/13/2025 1:30 PM BISCUITWARE BRUSHER Office Visit Section of [facility] in [place], [place] [address] [place] [address] El Jhaveri M.D. [address] [place] [phone] 03/13/2025 3:30 PM BISCUITWARE BRUSHER Comprehensive Visit Department of Dermatology for [facility] in [place], [place] [address] [place] [address] El Jhaveri M.D. [address] [place] [phone] 03/14/2025 2:00 PM BISCUITWARE BRUSHER Comprehensive Visit Department of Physical Medicine and Rehabilitation in [place], [place] [address] [place] [phone] Kortney Gomez M.D. [address] [place] [phone] 03/14/2025 4:00 PM BISCUITWARE BRUSHER Comprehensive Visit Department of Physical Medicine and Rehabilitation in [place], [place] [address] [place] [address] El Jhaveri M.D. [address] [place] [phone] Khadijah Kelley P.T. [address] [place] [phone] 03/15/2025 7:00 AM [facility] Telemedicine Section of [facility] Medicine in [place], [place] [address] [place] [phone] El Jhaveri M.D. [address] [place] [phone] documented as of this encounter Visit Diagnoses Not on filedocumented in this encounter Care Teams Bonding Equipment Operator Relationship Specialty Start Date End Date Elsewhere, Pcp PCP - General 07/26/21 documented as of this encounter
--- OUTSIDE RECORDS SUMMARY | 2025-02-21 18:02 | XMS_ITS | Encounter Summary ---
Author Organization [facility] Address [address] [place] [address] Care Team Providers Care Proposal Review Analyst Name Role Phone Elsewhere, Pcp Primary Care Provider Unavailabl e Encounter Details Date Type Department Care Team (Late st Contact Info) Description 01/07/2023 Orders Only Department of Urology in [place], [place] [address] [place] [address] [facility], ProviderMD Social History Tobacco Use Types Packs/Day [...] place to sleep or slept in a residential (including now)? No 03/01/2022 Education Answer Date Recorded What is the highest level of school you have completed or the highest degree you have received? Bachelor's degree (e.g., BA, AB, BS) 09/25/2018 Sex and Gender Information Value Date Recorded Sex Assigned at Male 03/01/2022 8:02 PM INSPECTOR AND ADJUSTER [employer] Legal Sex Male 6:23 PM INSPECTOR AND ADJUSTER [employer] Gender Identity Male 09/13/2017 9:03 AM CDT Sexual Orientation Straight 09/13/2017 9: 03 AM CDT documented as of this encounter Plan of Treatment Upcoming Encounters Date Type Department Care Team (Latest Contact Info) Description 03/12/2025 9:30 AM INSPECTOR AND ADJUSTER [employer] Clinical Communication Virtual Review in [place], [place] 200 [place] [address] 03/13/2025 11:30 AM INSPECTOR AND ADJUSTER [employer] Appointment Department of Radiology, [facility] in [place], [place] [address] [place] [phone] El Jhaveri M.D. [address] [place] [phone] Discharge Disposition: Home or Self Care 03/13/2025 12:10 PM INSPECTOR AND ADJUSTER [employer] Lab Department of Laboratory Medicine and Pathology, [facility], in [place], [place] [address] [place] [phone] El Jhaveri M.D. [address] [place] [phone] 03/13/2025 12:40 PM INSPECTOR AND ADJUSTER [employer] Lab Department of Laboratory Medicine and Pathology, [facility], in [place], [place] [address] [place] [phone] El Jhaveri M.D. [address] [place] [phone] 03/13/2025 1:30 PM INSPECTOR AND ADJUSTER [employer] Office Visit Section of [facility] in [place], [place] [address] [place] [phone] El Jhaveri M.D. [address] [place] [phone] 03/13/2025 3:30 PM INSPECTOR AND ADJUSTER [employer] Comprehensive Visit Department of Dermatology for [facility] in [place], [place] [address] [place] [phone] El Jhaveri M.D. [address] [place] [phone] 03/14/2025 2:00 PM INSPECTOR AND ADJUSTER [employer] Comprehensive Visit Department of Physical Medicine and Rehabilitation in [address] [phone] Kortney Gomez M.D. [address] [place] [phone] 03/14/2025 4:00 PM INSPECTOR AND ADJUSTER [employer] Comprehensive Visit Department of Physical Medicine and Rehabilitation in [address] [phone] El Jhaveri M.D. [address] [place] [phone] Khadijah Kelley P.T. [address] [place] [phone] 03/15/2025 7:00 AM [facility] Section [facility] Medicine in [place], [place] [address] [place] [address] El Jhaveri M.D. 200 [place] [address] documented as of this encounter Visit Diagnoses Not on filedocumented in this encounter Care Teams Proposal Review Analyst Relationship Specialty Start Date End Date Elsewhere, Pcp PCP - General 07/26/21 documented as of this encounter
--- OUTSIDE RECORDS SUMMARY | 2025-02-21 18:03 | XMS_ITS | Encounter Summary ---
Author Organization [facility] Address [address] [place] [phone] Care Team Providers Care Stockroom Worker Name Role Phone Elsewhere, Pcp Primary Care Provider Unavailabl e Reason for Referral * Outpatient (Routine) - Closed Specialty Diagnoses / Procedures Referred By Oliver t Referred To Contact Diagnoses Frequency Urinary Urgency Urinary Procedures URO Uroflow Des Lou M.D. [address] [place] [phone] Phone: tel: fax: [facility] Referral ID Status Reason Start Date Expiration Date Visits Re quested Visits Authorized [id number] Closed 06/04/2024 09/04/2025 1 1 ICAL DENTAL TECHNICIAN Encounter Details Date Type Department Care Team (Late st Contact Info) Description 06/04/2024 Orders Only Department of Urology in [place], [place] [address] [place] [phone] [facility], [place] Kely Frequency Urinary; Urgency Urinary Social History Tobacco Use Types Packs/Day Years Used Date Smoking Tobacco: Never Passive Smoke Exposure: Never Smokeless Tobacco: Never Alcohol Use Standard Drinks/Week Comments No 0 (1 standard drink = 0.6 oz pur e alcohol) rare [facility] Utilities Answer Date Recorded In the past 12 months has th e electric, gas, oil, or water company threatened to shut off services in your home? No 03/18/2024 Humiliation, Afraid, Rape, and Kick questionnair e [...] the money to buy more. Never true 03/18/20 Within the past 12 months, t he food you bought just didn't last and you didn't have money to get more. Never true 03/18/2024 PRAPARE - Transportation Answer Date Re corded In the past 12 months, has l ack of transportation kept you from medical appointments or from getting medications? No 03/04 In the past 12 months, has l ack of transportation kept you from meetings, work, or from getting things needed for daily living? No 03/18/2024 Housing Stability Answer Date Recorded What is your living situation today? I have a [facility] place to live 03/18/2024 Education Answer Date Recorded What is the highest level of school you have completed or the highest degree you have received? Bachelor's degree (e.g., BA, AB, BS) 09/25/2018 Sex and Gender Information Value Date Recorded Sex Assigned at Male 03/01/2022 8:02 PM CLINICAL DENTAL TECHNICIAN Legal Sex Male 6:23 PM CLINICAL DENTAL TECHNICIAN Gender Identity Male 09/13/2017 9:03 AM CDT Sexual Orientation Straight 09/13/2017 9: 03 AM CDT documented as of this encounter Plan of Treatment Upcoming Encounters Date Type Department Care Team (Latest Contact Info) Description 03/12/2025 9:30 AM CLINICAL DENTAL TECHNICIAN Clinical Communication Virtual Review in [place], [place] [address] [place] [address] 03/13/2025 11:30 AM CLINICAL DENTAL TECHNICIAN Appointment Department of Radiology, [facility], in [place], [place] [address] [place] [address] El Jhaveri M.D. [address] [place] [phone] Discharge Disposition: Home or Self Care 03/13/2025 12:10 PM CLINICAL DENTAL TECHNICIAN Lab Department of Laboratory Medicine and Pathology, [facility], in [place], [place] [address] [place] [address] El Jhaveri M.D. [address] [place] [phone] 03/13/2025 12:40 PM CLINICAL DENTAL TECHNICIAN Lab Department of Laboratory Medicine and Pathology, [facility], in [place], [place] [address] [place] [address] El Jhaveri M.D. [address] [place] [phone] 03/13/2025 1:30 PM CLINICAL DENTAL TECHNICIAN Office Visit Section [facility] in [place], [place] [address] [place] [address] El Jhaveri M.D. [address] [place] [phone] 03/13/2025 3:30 PM CLINICAL DENTAL TECHNICIAN Comprehensive Visit Department of Dermatology for [facility] in [place], [place] [address] [place] [address] El Jhaveri M.D. [address] [place] [phone] 03/14/2025 2:00 PM CLINICAL DENTAL TECHNICIAN Comprehensive Visit Department of Physical Medicine and Rehabilitation in [place], [place] [address] [place] [address] Kortney Gomez M.D. [address] [place] [phone] 03/14/2025 4:00 PM CLINICAL DENTAL TECHNICIAN Comprehensive Visit Department of Physical Medicine and Rehabilitation in [place], [place] [address] [place] [address] El Jhaveri M.D. [address] [place] [phone] Khadijah Kelley P.T. [address] [place] [phone] 03/15/2025 7:00 AM CLINICAL DENTAL TECHNICIAN Telemedicine Section of [facility] in [place], [place] [address] [place] [phone] El Jhaveri M.D. [address] [place] [phone] documented as of this encounter Results * URO Uroflow (06/18/2024 10:30 AM CDT) Des Delgadillo M.D. - 06/18/2024 10:30 AM CDT Des Lou M.D. 06/18/2024 11:16 AM REASON FOR VISIT: Uroflow: The patient here for a complex uroflow via calibrated electronic equipment and a residual urine check by ultrasound. FINDINGS: Peak flow 18 ml/sec Average flow 5 ml/sec Total voided volume 224 mls Residual urine 231 ml by ultrasound Valsalva flow pattern IMPRESSION: Moderate Q max with normal bladder capacity and elevated postvoid residual. us Des Lou M.D. 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
--- OUTSIDE RECORDS SUMMARY | 2025-02-21 18:03 | XMS_ITS | Encounter Summary ---
Author Organization [facility] Address [address] [place] [address] Care Team Providers Care Critical Care Physician Assistant Name Role Phone Elsewhere, Pcp Primary Care Provider Unavailabl e Encounter Details Date Type Department Care Team (Late st Contact Info) Description 01/07/2023 Orders Only Department of Urology in [place], [place] [address] [place] [address] [facility], ProviderMD Social History Tobacco Use Types [...] place to sleep or slept in a long-term (including now)? No 03/01/2022 Education Answer Date Recorded What is the highest level of school you have completed or the highest degree you have received? Bachelor's degree (e.g., BA, AB, BS) 09/25/2018 Sex and Gender Information Value Date Recorded Sex Assigned at Male 03/01/2022 8:02 PM PHYSICIAN SPECIALIST Legal Sex Male 6:23 PM PHYSICIAN SPECIALIST Gender Identity Male 09/13/2017 9:03 AM CDT Sexual Orientation Straight 09/13/2017 9: 03 AM CDT documented as of this encounter Plan of Treatment Upcoming Encounters Date Type Department Care Team (Latest Contact Info) Description 03/12/2025 9:30 AM PHYSICIAN SPECIALIST Clinical Communication Virtual Review in [place], [place] 200 [place] [address] 03/13/2025 11:30 AM PHYSICIAN SPECIALIST Appointment Department of Radiology, [facility] in [place], [place] [address] [place] [phone] El Jhaveri M.D. [address] [place] [phone] Discharge Disposition: Home or Self Care 03/13/2025 12:10 PM PHYSICIAN SPECIALIST Lab Department of Laboratory Medicine and Pathology, [facility], in [place], [place] [address] [place] [phone] El Jhaveri M.D. [address] [place] [phone] 03/13/2025 12:40 PM PHYSICIAN SPECIALIST Lab Department of Laboratory Medicine and Pathology, [facility], in [place], [place] [address] [place] [phone] El Jhaveri M.D. [address] [place] [phone] 03/13/2025 1:30 PM PHYSICIAN SPECIALIST Office Visit [facility] in [place], [place] [address] [place] [phone] El Jhaveri M.D. [address] [place] [phone] 03/13/2025 3:30 PM PHYSICIAN SPECIALIST Comprehensive Visit Department of Dermatology for [facility] in [place], [place] [address] [place] [phone] El Jhaveri M.D. [address] [place] [phone] 03/14/2025 2:00 PM PHYSICIAN SPECIALIST Comprehensive Visit Department of Physical Medicine and Rehabilitation in [address] [phone] Kortney Gomez M.D. [address] [place] [phone] 03/14/2025 4:00 PM PHYSICIAN SPECIALIST Comprehensive Visit Department of Physical Medicine and Rehabilitation in [address] [phone] El Jhaveri M.D. [address] [place] [phone] Khadijah Kelley P.T. [address] [place] [phone] 03/15/2025 7:00 AM [facility] Telemedicine Section of [facility] Medicine in [place], [place] [address] [place] [address] El Jhaveri M.D. 200 [place] [phone] documented as of this encounter Visit Diagnoses Not on filedocumented in this encounter Care Teams Critical Care Physician Assistant Relationship Specialty Start Date End Date Elsewhere, Pcp PCP - General 07/26/21 documented as of this encounter
[2025-02-21] MEDS: TRANEXAMIC ACID 100 MG/ML INJ 1000 MG TOPICAL (18:38)
== END 2025-02-21 19:37 | disposition home or self-care (01) ==
PROVIDERS: Emergency Provider Student in an Organized Health Care Education/Training Program; PCP Family Medicine
DX: S01.512A Laceration without foreign body of oral cavity, initial encounter (principal); W26.9XXA Contact with unspecified sharp object(s), initial encounter
CPT/HCPCS: 99282; 99284